=== PATIENT | female | born 1945 | race Caucasian/White ===

== ENCOUNTER → 2017-12-16 | Outpatient (CLI) | payer OTHER ==
[~2017-12-16] MED LIST: ASPCH81X PO; CARV25TA2 PO; CHOL200010 PO; CYAN100020 PO; FERR1TAB23 PO; LOSA1TAB38 PO; METF-384 PO; MULT-506 PO; SIMV10TA2 PO
--- NOTE | 2017-12-16 16:02 | DIAGNOSTIC IMAGING REPORT ---
CHEST 2 VIEWS ROUTINE CLINICAL HISTORY: NEPHROLITHIASIS 592.0 N20.0 preoperative evaluation COMPARISON STUDY: No previous studies for comparison. FINDINGS: The bones soft tissues and hemidiaphragms are normal. The cardiomediastinal silhouette is normal. The lungs are clear. The pulmonary vasculature is normal. IMPRESSION: Negative chest. The above report was generated using voice recognition software. It may contain grammatical, syntax or spelling errors. Electronically signed by: Broderick Raymundo M.D. 12/16/2017 4:01 PM Dictated Date/Time: 12/16/2017 4:01 PM
[2017-12-16 16:46] LABS: BASO % 0.3 %; BASO ABS # 0.02 K/uL (0-0.2); EOS % 2.5 %; EOS ABS # 0.16 K/uL (0-0.5); HEMATOCRIT 33.3 % (37-47); HEMOGLOBIN 11.3 g/dL (12.0-16.0); IG# 0.01 K/uL (0.00-0.02); LYMPH % 34.5 %; LYMPH ABS # 2.21 K/uL (1.2-3.4); MEAN CELL VOLUME 87.9 fL (80-100); MEAN CORPUSCULAR HEMOGLOBIN 29.8 pg (25-34); MEAN CORPUSCULAR HGB CONC 33.9 g/dl (32-36); MEAN PLATELET VOLUME 9.7 fL (7.4-10.4); MONO % 8.1 %; MONO ABS # 0.52 K/uL (0.11-0.59); NEUT % 54.4 %; NEUT ABS # 3.48 K/uL (1.4-6.5); PLATELET COUNT 237 K/uL (130-400); RED CELL DISTRIBUTION WIDTH SD 41.6 fL (36.4-46.3)
[2017-12-16 17:05] LABS: BLOOD UREA NITROGEN 19 mg/dl (7-18); CARBON DIOXIDE 27 mmol/L (21-32); POTASSIUM 4.2 mmol/L (3.5-5.1); SODIUM 139 mmol/L (136-145)
== END | disposition home or self-care (01) ==
LOC: C.CPL 15:21
PROVIDERS: ATTEND Urology
DX: N20.0 Calculus of kidney (principal)

== ENCOUNTER → 2017-12-27 | Day surgery (SDC) | payer OTHER ==
[2017-12-04 14:09] VITALS: Ht 166.4 cm; Wt 75.0 kg
[~2017-12-27] VITALS: Ht 166.4 cm; Wt 75.0 kg
[~2017-12-27] MED LIST changes: +ACETAMINOPHEN 325 MG TAB PO PRN; +ATROPINE SULFATE 0.1 MG/ML 5ML SYR IV PRN; +CIPROFLOXACIN 400MG / D5W IV SCH; +DEXAMETHASONE SOD INJ 4 MG/ML VIAL ONE; +EpHEDrine SULFATE INJ 50 MG/ML AMP IV PRN; +FENTANYL CITRATE INJ 50 MCG/1 ML 2 ML VIAL IV PRN; +FENTANYL CITRATE INJ 50 MCG/1 ML 2 ML VIAL ONE; +HYDROCODONE/ACETAMIN 5/325MG TAB PO PRN; +LACTATED RINGER'S 1000ML 1,000 ML IV SCH; +LIDOCAINE HCL 2% 2 ML VIAL (20MG/ML) ONE; +ONDANSETRON INJ 2 MG/ML 2 ML VIAL IV PRN; +ONDANSETRON INJ 2 MG/ML 2 ML VIAL ONE; +PROPOFOL IV EMULSION 10 MG/ML 20 ML VIAL ONE; +SODIUM CHLORIDE 0.9% 1000ML 1,000 ML IV SCH; +TRAM-10 PO
--- NOTE | 2017-12-27 08:58 | DIAGNOSTIC IMAGING REPORT ---
KUB HISTORY: Acute bilateral flank pain N20.0 [id number] COMPARISON: Chest radiograph 12/16/2017 FINDINGS: The bowel gas pattern is non-obstructive. There is no organomegaly. r multiple calculi project over the bilateral kidneys, largest which measures 1.8 cm within the region of the interpolar right kidney. Small calculi projecting over the inferior pole left kidney measure up to 2 mm. 2 mm calcification inferior to the right L5 transverse process is noted. Vascular calcifications about the pelvis. No pneumoperitoneum or pneumatosis. No fracture. Degenerative changes of the hips, pelvis and spine. IMPRESSION: 1. Bilateral nephrolithiasis with large 1.8 cm calculus within the region of the interpolar right kidney. 2. 2 mm calcification inferior to the right transverse process of L5 may reflect a vascular calcification or small ureteral calculus. Correlate with urinalysis. 3. Nonobstructive bowel gas pattern. Electronically signed by: Mickey Chauhan M.D. 12/27/2017 8:56 AM Dictated Date/Time: 12/27/2017 8:53 AM
--- NOTE | 2017-12-27 10:05 | History & Physical Bridge Note ---
H&P Re-Evaluation Bridge Note: I have examined the patient, reviewed the History & Physical and in the interval since the performance of the History & Physical I have noted the following changes of clinical significance: No changes noted
--- NOTE | 2017-12-27 11:00 | Discharge Instructions-SurgCtr ---
Discharge Instructions Date of Service December 27, 2017. Visit Reason for Visit: Stones Discharge Discharge Diagnosis / Problem: stones Discharge Goals Goal(s): Decrease discomfort, Improve function, Increase independence, Improve disease control Medications Stopped Medications Name(s): see anti coag note Activity Recommendations Activity Limitations: resume your previous activity Lifting Limitations: none Exercise/Sports Limitations: none May Resume Sexual Activity: when tolerated Shower/Bathe: no limitations Driving or Machine Use: resume 1 day after discharge Anesthesia . Post Anesthesia Instructions: If you have had General Anesthesia or IV Sedation: * Do not drive today. * Resume driving when surgeon permits. * Do not make important decisions or sign legal documents today. * Call surgeon for: 1. Temperature elevations greater than 101 degrees F. 2. Uncontrollable pain. 3. Excessive bleeding. 4. Persistent nausea and vomiting. 5. Medication intolerance (nausea, vomiting or rash). * For nausea and vomiting use only clear liquids such as: tea, soda, bouillon until nausea subsides, then gradually increase diet as tolerated. * If you have any concerns or questions, call your surgeon's office. If physician is unavailable and it is an emergency, call 911 or go to the nearest emergency room. . Diet Recommendations Home Diet: no limitations, resume previous diet Procedures Procedures Performed: Right Extracorporeal Shock Wave Lithotripsy-Renal Pending Studies Studies pending at discharge: no Medical Emergencies . Who to Call and When: Medical Emergencies: If at any time you feel your situation is an emergency, please call 911 immediately. . Non-Emergent Contact Non-Emergency issues call your: Urologist Call Non-Emergent contact if: you have a fever, temperature is above 101.5, your pain is not controlled, your pain is worsening . . "Provider Documentation" section prepared by Jhon Jalloh. . [place] Drug Monitoring Program Search Results: patient reviewed within database, no issues identified
--- NOTE | 2017-12-27 11:02 | [facility] Operative Report ---
Operative Report Operative Date December 27, 2017. Pre-Operative Diagnosis Right kidney stone-Renal Post-Operative Diagnosis Same as pre-op Procedure(s) Performed Right Extracorporeal Shock Wave Lithotripsy-Renal Surgeon Dr. Vang Credit Advisor Surgeon(s) None Estimated Blood Loss Zero Findings Large right renal calculus Specimens None Anesthesia Type General Complication(s) none Disposition yes Recovery Room / PACU Indications Right renal calculi Description of Procedure The patient was identified in the preoperative holding area, appropriate informed consent was reviewed and completed and the patient was transported to the operating suite. Upon arrival appropriate preoperative antibiotics were administered and general anesthesia induced. The patient was placed in supine position and the stone was localized under fluoroscopy. A total of 2500 shocks were delivered to the stone. There appeared to be good fragmentation of the stone. Details of this procedure can be found on the [facility] [place] [facility] information sheet. At the conclusion of the case the patient was extubated and taken to the PACU in stable condition. There were no complications. I attest to the content of the Intraoperative Record and any orders documented therein. Any exceptions are noted below.
--- NOTE | 2017-12-27 11:32 | Anesthesia Progress Nt - [facility] ---
Anesthesia Post Op Note Date & Time December 27, 2017 at 11:32 Vital Signs Pain Intensity: 0 Vital Signs Past 12 Hours Date Time Temp Pulse Resp B/P (MAP) Pulse Ox O2 Delivery O2 Flow Rate FiO2 12/27/17 11:26 137/72 12/27/17 11:23 69 12 12/27/17 11:23 69 12 99 12/27/17 11:21 136/63 12/27/17 11:18 75 18 99 12/27/17 11:18 75 18 12/27/17 11:16 137/81 12/27/17 11:14 144/60 12/27/17 11:13 36.6 79 16 144/60 96 Diffusion Mask 6 12/27/17 08:57 37 68 20 166/75 (105) 97 Room Air Notes Mental Status: alert / awake / arousable, participated in evaluation Pt Amnestic to Procedure: Yes Nausea / Vomiting: adequately controlled Pain: adequately controlled Airway Patency, RR, SpO2: stable & adequate BP & HR: stable & adequate Hydration State: stable & adequate Anesthetic Complications: no major complications apparent
[2017-12-27 11:50] VITALS: TEMP 36.4
[2017-12-27 12:18] VITALS: BP 145/71; PULSE 61; O2SAT 93
== END | disposition home or self-care (01) ==
LOC: X.SURG 08:19
PROVIDERS: ATTEND Urology
DX: N20.0 Calculus of kidney (principal); I10 Essential (primary) hypertension; E11.9 Type 2 diabetes mellitus without complications; Z85.42 Personal history of malignant neoplasm of other parts of uterus; Z79.82 Long term (current) use of aspirin; Z91.040 Latex allergy status; Z88.1 Allergy status to other antibiotic agents; Z83.3 Family history of diabetes mellitus; Z82.49 Family history of ischemic heart disease and other diseases of the circulatory system